=== PATIENT | female | born 1980 | race Caucasian/White ===

== ENCOUNTER 2017-07-18 09:07 | Day surgery (SDC) | payer BC ==
[2017-05-17 13:37] VITALS: BMI 25.4
[2017-07-18] MEDS ORDERED: Bupivacaine 0.5% Inj(30mL) ONE (09:45)
[2017-07-18 09:57] LABS: BASO % 0.9 % (0.0-2.0); EOS # 0.2 K/uL (0.0-0.7); EOS % 4.8 % (0.0-4.0); HEMOGLOBIN 13.7 g/dL (12.0-16.0); LYMPH # 2.2 K/uL (1.0-4.3); LYMPH % 44.5 % (20.0-40.0); MEAN CELL VOLUME 85.9 fl (81.0-99.0); MEAN CORPUSCULAR HEMOGLOBIN 29.2 pg (27.0-31.0); MEAN PLATELET VOLUME 7.2 fl (7.2-11.7); MONO # 0.3 K/uL (0.0-0.8); MONO % 6.3 % (0.0-10.0); NEUT # 2.2 K/uL (1.8-7.0); NEUT % 43.5 % (50.0-75.0); NRBC % 0.1 % (0.0-0.0); RBC 4.68 Mil/uL (3.80-5.20); RED CELL DISTRIBUTION WIDTH 14.1 % (11.5-14.5)
[2017-07-18] MEDS ORDERED: Lactated Ringer's 1,000 ML IV ONE ×3 (11:20→12:30)
[2017-07-18] MEDS ORDERED: Bupivacaine 0.5% 50 ML IJ ONE (11:45)
[2017-07-18] MEDS ORDERED: Oxycodone/Acetaminophen 5/325 mg Tab PO PRN (14:06)
[2017-07-18] MEDS ORDERED: Sodium Chloride 0.9% 1,000 ML IV SCH (14:15)
[2017-07-18] MEDS: HYDROmorphone 0.5 mg/0.5 ml ISec IVP PRN ×2 (14:50→15:07)
[2017-07-18] MEDS: ceFAZolin 2 GM in Sodium Chloride 0.9% 100 ML IVPB SCH (18:54)
[2017-07-19] MEDS: Lactated Ringer's 1,000 ML IV SCH ×2 (01:07→01:47)
[2017-07-19] MEDS: ceFAZolin 2 GM in Sodium Chloride 0.9% 100 ML IVPB SCH ×2 (02:56→11:12)
[2017-07-19 06:26] LABS: HEMOGLOBIN 11.4 g/dL (12.0-16.0); MEAN CELL VOLUME 86.2 fl (81.0-99.0); MEAN CORPUSCULAR HEMOGLOBIN 29.1 pg (27.0-31.0); MEAN CORPUSCULAR HGB CONC 33.7 g/dL (33.0-37.0); RBC 3.94 Mil/uL (3.80-5.20); RED CELL DISTRIBUTION WIDTH 13.5 % (11.5-14.5); WHITE BLOOD COUNT 11.6 K/uL (4.8-10.8)
[2017-07-19] MEDS ORDERED: Levothyroxine 25 MCG TAB PO SCH (06:30)
[2017-07-19 06:36] LABS: BLOOD UREA NITROGEN 7 mg/dl (7-17); CALCIUM 8.7 mg/dL (8.4-10.2); GFR AFRICAN-AMERICAN > 60; GFR NON-AFRICAN AMERICAN > 60
[2017-07-19 08:06] VITALS: BP 110/68; PULSE 70; RESP 20; TEMP 97.8; O2SAT 99
--- NOTE | 2017-07-19 08:11 | CP.PCM.PN ---
Subjective - Date & Time of Evaluation Date of Evaluation: 07/19/17 Time of Evaluation: 08:00 - Subjective Subjective: Patient comfortable, pain controlled, but says dilaudid made her nauseated and requests another medication as percocet also makes her nauseated. Denies CP/SOB/ dizziness. Patient voided, but only 50cc. Tolerating diet. has not passed gas Objective - Vital Signs/Intake and Output Vital Signs (last 24 hours): Temp Pulse Resp BP Pulse Ox 97.8 F 70 20 110/68 99 07/19/17 08:05 07/19/17 08:05 07/19/17 08:05 07/19/17 08:05 07/19/17 08:05 - Medications Medications: Current Medications Acetaminophen (Tylenol 325mg Tab) 650 mg PO Q6 PRN PRN Reason: Pain, Mild (1-3) Hydromorphone HCl (Dilaudid) 0.5 mg IVP Q4H PRN PRN Reason: Pain, severe (8-10) Last Admin: 07/19/17 01:17 Dose: 0.5 mg Cefazolin Sodium 2 gm/ Sodium (Chloride) 100 mls @ 100 mls/hr IVPB Q8H [facility] PRN Reason: Protocol Stop: 07/19/17 11:59 Last Admin: 07/19/17 02:56 Dose: 100 mls/hr Sodium Chloride (Sodium Chloride 0.9%) 1,000 mls @ 100 mls/hr IV .Q10H [facility] Last Admin: 07/19/17 01:47 Dose: Not Given Lactated Ringer's (Lactated Ringer's) 1,000 mls @ 125 mls/hr IV .Q8H [facility] Last Admin: 07/19/17 01:47 Dose: Not Given Ketorolac Tromethamine (Toradol) 30 mg IVP Q8 PRN PRN Reason: Pain, moderate (4-7) Last Admin: 07/18/17 18:53 Dose: 30 mg Levothyroxine Sodium (Synthroid) 25 mcg PO DAILY@0630 [facility] Last Admin: 07/19/17 05:32 Dose: 25 mcg Ondansetron HCl (Zofran Inj) 4 mg IVP Q8 PRN PRN Reason: Nausea/Vomiting Oxycodone/Acetaminophen (Percocet 5/325 Mg Tab) 1 tab PO Q4 PRN PRN Reason: Pain, moderate (4-7) Stop: 07/21/17 14:07 - Labs Labs: 07/19/17 05:45 07/19/17 05:45 - GI/Abdominal Exam GI & Abdominal Exam: Soft, Tenderness, Hypoactive Bowel Sounds Additional comments: incisions dry/intact, no erythema patient in chair, comfortable Assessment and Plan (1) Endometriosis Assessment & Plan: POD#1 s/p robotic assisted excision of endo plan d/c home today after antibiotics and once patient voids more (only 50 cc so far) encourage po intake zofran prn nausea d/w dr. Clay, agrees with above, f/u as outpt 1-2 weeks call for appt Status: Acute
--- NOTE | 2017-07-21 14:27 | OP ---
PROCEDURE DATE: 07/18/2017 PREOPERATIVE DIAGNOSES: Pelvic pain, dysmenorrhea, dyspareunia, pelvic endometriosis, history of prior surgery, and left hydrosalpinx. POSTOPERATIVE DIAGNOSES: Pelvic pain, dysmenorrhea, dyspareunia, pelvic endometriosis, history of prior surgery, and left hydrosalpinx plus extensive pelvis adhesions and diaphragmatic endometriosis. PROCEDURE PERFORMED: Cystoscopy with bilateral ureteral catheterization and injection of IC-Green, diagnostic hysteroscopy, robotic da Beata laparoscopy, extensive lysis of adhesions, left salpingectomy, excisional of bladder mass, and bilateral ureterolysis. SURGEON: Justyn Clay MD [employer] OPERATOR: Riky Gutierrez MD TYPE OF ANESTHESIA: General endotracheal. ESTIMATED BLOOD LOSS: 150 mL. COMPLICATIONS: None. SAMPLES: Multiple samples sent to Pathology containing endometriosis and left hydrosalpinx. INDICATIONS OF PROCEDURE: The patient is a 37-year-old with a history of severe pelvic pain, history of prior myomectomy and also three episodes of pneumothorax secondary to endometriosis of the diaphragm, which was treated with pleurodesis. The patient was counseled with regards to the risk and the benefits of the surgery and it was explained to her how complicated the surgery would be. The main goal of the surgery was to relief some of the pain that was secondary to her pelvic adhesion, pelvic endometriosis, and the left hydrosalpinx, which was massive and she was counseled with regards to her diaphragmatic endometriosis, which at this point, the plan was not to address it as she had been doing better after pleurodesis, so she signed the consent and was taken to the OR. DESCRIPTION OF PROCEDURE: After the patient signed the consent, she was taken to the OR. She was prepped and draped and with extreme care to pad her body with all the areas of pressure and make sure that her hips will not be hyper-extended or hyper-flexed, she was prepped and draped. At this point, a time-out was taken according to the hospital policy and the procedure was started. Attention was on the vaginal area where a cystoscope was inserted into the urethra and into the bladder. After distending the bladder with 200 mL of sterile saline, the bladder was visualized and appeared to have a slight compression effect, otherwise, normal. Both ureteral orifices were in normal anatomical position. The left ureteral orifice was then catheterized utilizing a 5-Faroese open-ended catheter all the way to the distal ureter and 5 mL of IC-Green were then injected. Attention was on the contralateral ureter, which was cannulized all the way to the distal ureter injecting 5 mL of IC-Green. At this point the cystoscope was removed and it was replaced by 16-Faroese Gutierrez. Attention was on the vaginal area where a speculum was placed in the vagina. The anterior lip of the cervix was grasped. The cervix was gently dilated and the hysteroscope was inserted into the uterine cavity that appeared to be free of any lesions. At this point, attention was on the abdomen where after re-gowning and re-gloving, an open laparoscopy was performed utilizing standard technique and entered the peritoneum in a blunt fashion. At this point, a cannula was placed and the upper abdomen was visualized. The camera port was insered and the abdomen insufflated. 3 additional ports were placed under direct vision. The Da beata xi robot was docked.There appeared to be areas of endometriosis present in the patient's diaphragm and some adhesions between the liver and the diaphragm. As per the patient's request, this problem would not be addressed at the present surgery, but it was documented with images and video. At this point, attention was on the pelvis where attention was on the uterus, which was massively enlarged reaching almost all the way to the pelvic brim. The patient had a prior surgery, so the goal was not to perform myomectomy as the patient did not desire any damage for her uterus or her reproductive organs. In the left fallopian tube, there was a large tubo-ovarian mass on the left hand side containing large recollection, a large hydrosalpinx, and endometriosis in the left cul-de-sac area. The posterior aspect of the uterus was completely adherent to the sacral area with bowel adhesions. Also on the right hand side, the ovary was not visible as it was buried within significant adhesions. Anteriorly, the bladder was attached and brought up very elevated with a large area of endometriosis. The first part of surgery involved removing this large bladder mass, which involved entering the bladder peritoneum and progressively dissecting off the muscularis, this mass which was excised in toto and without entering the bladder and sent to Pathology. The Gutierrez bulb was visible under the dissection, but the bladder was not entered and the integrity of the muscularis was not destroyed. At this point, attention was on the posterior aspect where a very extensive dissection enterolysis was performed with the help of Dr. Gutierrez from general surgery and a full dissection was performed, progressively opening the posterior rectal space, the column being attached completely to the posterior aspect of the uterus. The area was progressively dissected off. A 4 x 4 was inserted in to the abdominal cavity through a 12-mm port and used to control the bleeding, which was mostly oozing in nature. Finally, I was able to enter the left hand side identifying the left ureter, which was progressively dissected off and lateralized from the operating zone, I was able to drain some of the fluid collection and finally identified the left tube, which was transforming to huge hydrosalpinx. The tube was followed all the way to the deepest part of the pelvis and also from all the way to its origin and it was progressively dissected off and sent to Pathology. Attention then was on the right hand side where after identifying the ureter and dissecting it out, a full dissection was performed freeing up the space on the right hand side. The right ovary was not fully freed, but because the fimbriated end appeared to be in good condition, the patient desired to maintain her fertility, I want to just make sure that the space opened and it was free of adhesions and the endometriotic lesions, which it was. At this point, it was checked for hemostasis, there appeared to be good. The 4 x 4 was then removed. The pelvis was irrigated. The robot was undocked. The abdomen desufflated. The instruments were removed and the incisions were closed in layer using with 0 PDS for the fascia and 4-0 Monocryl for the skin. At the end of the procedure, all tapes and instruments counts were correct. The patient tolerated the procedure well and was taken to the recovery room in excellent condition. Justyn Clay MD [facility]
== END 2017-07-19 13:06 | disposition home or self-care (01) ==
LOC: H.OPSURG 09:07 → H.MEDSURG1 14:06 → UNDOADMIN 14:06 → H.OPSURG 07-19 13:06 → UNDODISIN 07-19 13:06
PROVIDERS: ATTEND Obstetrics & Gynecology Reproductive Endocrinology
PROC: 8E0W0CZ Robotic Assisted Procedure of Trunk Region, Open Approach (ICD-10-PCS; 2017-07-18)
PROC: 0TJB8ZZ Inspection of Bladder, Via Natural or Artificial Opening Endoscopic (ICD-10-PCS; 2017-07-18)
PROC: 0DNW0ZZ Release Peritoneum, Open Approach (ICD-10-PCS; principal; 2017-07-18 11:00)
PROC: 0UT60ZZ Resection of Left Fallopian Tube, Open Approach (ICD-10-PCS; 2017-07-18 11:00)
PROC: 0TBB0ZZ Excision of Bladder, Open Approach (ICD-10-PCS; 2017-07-18 11:00)
DX: N94.6 Dysmenorrhea, unspecified (principal); N94.10 Unspecified dyspareunia; N80.3 Endometriosis of pelvic peritoneum; N73.6 Female pelvic peritoneal adhesions (postinfective); N80.8 Other endometriosis; N70.11 Chronic salpingitis
CPT/HCPCS: 36415; 52240; 52341; 58559; 58700; 80048; 85025; 85027; 86850; 86900; 88305; C1729; J0330; J0690; J1100; J1170; J1885; J2001; J2250; J2405; J2704; J2710; J2765; J3010; J7030; J7040; J7120